=== PATIENT | male | born 1945 | race Caucasian/White ===

== ENCOUNTER 2021-08-10 10:28 | Emergency (ER) | payer MEDICARE, OTHER ==
[~2021-08-10] VITALS: Ht 182.9 cm; Wt 79.4 kg
[2021-08-10 11:21] LABS: BASOPHIL 0.3 % (0-2); EOSINOPHIL 0.6 % (0-7); HCT 46.1 % (42.0-52.0); MCH 29.4 pg (25.0-31.0); MCHC 32.5 g/dL (32.0-36.0); MCV 90.4 fL (78.0-100.0); MONOCYTE 10.6 % (0-12); MPV 9.9 fL (6.0-9.5); NEUTROPHIL 74.5 % (41-80); NRBC 0; PLT 356 K/uL (150-400); RDW 13.5 % (11.5-14.0)
[2021-08-10 11:26] LABS: WBC 19.7 K/uL (4.0-10.5)
[2021-08-10 11:45] LABS: INR 1.16 (0.9-1.2); PROTHROMBIN TIME 14.2 SECONDS (11.8-13.4); PTT 34.9 SECONDS (24.4-34.7)
[2021-08-10 11:58] LABS: LACTIC ACID 10.2 mmol/L (0.4-1.9)
[2021-08-10 12:32] LABS: ALBUMIN 2.7 g/dL (3.4-5.0); ALKALINE PHOSHATASE 140 U/L (46-116); ALT 140 U/L (16-63); AST 116 U/L (15-37); BILIRUBIN - TOTAL 1.1 mg/dL (0.2-1.0); BUN 17 mg/dL (7-18); BUN/CREAT RATIO (CALC) 23.9 RATIO; CHLORIDE 98 mmol/L (98-107); CO2 (BICARBONATE) 18 mmol/L (21-32); CREATININE 0.71 mg/dL (0.67-1.17); GLOBULIN (CALCULATION) 3.8 g/dL; GLUCOSE 137 mg/dL (74-106); LDH 810 U/L (85-227); MAGNESIUM 2.4 mg/dL (1.8-2.4); POTASSIUM 4.2 mmol/L (3.5-5.1); TOTAL PROTEIN 6.5 g/dL (6.4-8.2)
[2021-08-10 12:34] LABS: C-REACTIVE PROTEIN < 0.20 mg/dL (<=0.90)
[2021-08-10 12:44] LABS: D-DIMER > 20.00 ug/mLFEU (0.00-0.41)
[2021-08-10 17:31] LABS: LACTIC ACID 3.2 mmol/L (0.4-1.9)
== END 2021-08-10 19:40 | disposition other institution (70) ==
LOC: FER 10:28 → FICU 13:01 → FER 13:01 → FICU 14:06 → FER 19:40
PROVIDERS: Emergency Medicine; Family Medicine
DX: U07.1 COVID-19 (principal); J12.82 Pneumonia due to coronavirus disease 2019; J96.01 Acute respiratory failure with hypoxia; D89.839 Cytokine release syndrome, grade unspecified; Z87.891 Personal history of nicotine dependence; Z88.5 Allergy status to narcotic agent; Z88.8 Allergy status to other drugs, medicaments and biological substances
CPT/HCPCS: 31500; 36415; 36600; 71045; 71275; 74018; 80053; 82728; 82803; 83605; 83615; 83735; 83880; 84145; 84484; 85025; 85379; 85610; 85730; 86140; 87040; 92950; 93005; 96365; 96366; 96367; 96368; 96375; 96376; C9399; J0330; J1100; J1644; J2543; J2704; J3010; J3370; J7030; J7050; Q9967; U0002

== ENCOUNTER 2021-09-06 13:09 | Emergency (ER) | payer MEDICARE, OTHER ==
[2021-09-06 15:16] LABS: BASOPHIL 0.5 % (0-2); EOSINOPHIL 9.8 % (0-7); HCT 29.9 % (42.0-52.0); HGB 9.6 g/dl (13.2-18.0); LYMPHOCYTE 23.4 % (15-48); MCHC 32.1 g/dL (32.0-36.0); MCV 99.7 fL (78.0-100.0); MONOCYTE 11.6 % (0-12); MPV 10.3 fL (6.0-9.5); NEUTROPHIL 54.2 % (41-80); NRBC 0; PLT 101 K/uL (150-400); RDW 20.1 % (11.5-14.0)
[2021-09-06 15:28] LABS: INR 2.03 (0.9-1.2); PROTHROMBIN TIME 22.1 SECONDS (11.8-13.4)
[2021-09-06 15:29] LABS: PTT 41.6 SECONDS (24.4-34.7)
[2021-09-06 15:32] LABS: BUN/CREAT RATIO (CALC) 15.6 RATIO; CREATININE 0.9 mg/dL (0.67-1.17); POTASSIUM 4.5 mmol/L (3.5-5.1)
[2021-09-06] MEDS ORDERED: XARELTO15 MG PO (16:28)
== END 2021-09-06 17:11 | disposition home or self-care (01) ==
LOC: FER 13:09
PROVIDERS: Internal Medicine
DX: J18.9 Pneumonia, unspecified organism (principal); D64.9 Anemia, unspecified; Z86.16 Personal history of COVID-19; Z88.5 Allergy status to narcotic agent; Z88.8 Allergy status to other drugs, medicaments and biological substances
CPT/HCPCS: 36415; 71045; 80048; 85025; 85610; 85730